=== PATIENT | female | born 1990 | race African-American/Black ===

== ENCOUNTER 2017-09-01 09:41 | Emergency (ER) | payer OTHER ==
[~2017-09-01] VITALS: Ht 170.2 cm; Wt 106.8 kg
[2017-09-01 09:57] VITALS: BP 120/78
--- NOTE | 2017-09-01 10:02 | NUR ---
Dr. Choi evaluating patient at bedside.
--- NOTE | 2017-09-01 10:02 | NUR ---
Patient ambulated to bed 8. RN evaluating patient at bedside.
[2017-09-01 10:38] VITALS: BP 120/78
[2017-09-03 12:42] LABS: HEPATITIS A ANTIBODY IGM Negative (Negative); HEPATITIS B CORE AB TOTAL Negative (Negative); HEPATITIS B SURFACE AB Non Reactive (.); HEPATITIS B SURFACE ANTIGEN Negative (Negative)
== END 2017-09-01 10:37 | disposition home or self-care (01) ==
LOC: MED 09:41
DX: Z77.21 Contact with and (suspected) exposure to potentially hazardous body fluids (principal)
CPT/HCPCS: 36415; 86702; 86704; 86706; 86708; 86709; 86803; 87340; 99284